=== PATIENT | male | born 1955 | race Caucasian/White ===

== ENCOUNTER 2017-01-06 09:00 | Emergency (ER) | payer OTHER ==
[2017-01-06 09:20] VITALS: BMI 24.8
[2017-01-06 09:24] VITALS: TEMP 98.4
--- NOTE | 2017-01-06 10:13 | ED PDOC ---
Arrival/HPI - General Chief Complaint: Lower Extremity Problem/Injury Time Seen by Provider: 01/06/17 09:28 Historian: Patient - History of Present Illness Narrative History of Present Illness (Text): 01/06/17 10:11 61-year-old male presents today with a two-week history of worsening left sided back pain. Patient states that he's been having on and off back pain which has been minimal for the past 2 months. Patient states about 2 weeks ago he had left something up at work he felt a pop and didn't have any pain at that time but shortly after started to develop worsening pain in the low back on the left side radiating into the left leg. Patient denies numbness weakness or tingling in the extremity. Patient states he's been taking Percocet at home with improvement in his symptoms. Patient states if he does not take the pain medication than he has worsening pain which makes it difficult to ambulate. Patient states the pain is a sharp stabbing pain in the left low back that radiates into the left hip and into the leg. Patient denies abdominal pain. No nausea or vomiting. Denies fevers or chills. No chest pain or shortness of breath. No other complaints Time/Duration: > week (2) Past Medical History - Provider Review Nursing Documentation Reviewed: Yes - Travel History Have you recently traveled outside [place] w/in the past 3 mons?: No - Tetanus Immunization Tetanus Immunization: Unknown - Cardiac Hx Cardiac Disorders: Yes ([facility]I 06-11-14POST CARDIAC CATH ANGIOPLASTY- RIGHT GROIN ) Hx Hypertension: Yes Hx Pacemaker: No - Pulmonary Hx Respiratory Disorders: No - Neurological Hx Neurological Disorder: No - HEENT Hx HEENT Disorder: No - Renal Hx Renal Disorder: No - Endocrine/Metabolic Hx Endocrine Disorders: No - Hematological/Oncological Hx Blood Disorders: No - Integumentary Hx Dermatological Disorder: No - Musculoskeletal/Rheumatological Hx Musculoskeletal Disorders: Yes (RIGHT MENISCUS TEAR,LEFT KNEE ARTHORSCOPY 2- 12) Hx Falls: Yes - Gastrointestinal Hx Gastrointestinal Disorders: No - Genitourinary/Gynecological Hx Genitourinary Disorders: No - Psychiatric Hx Psychophysiologic Disorder: No Hx Substance Use: No - Surgical History Hx Coronary Stent: Yes - Anesthesia Hx Anesthesia: Yes Hx Anesthesia Reactions: No - Suicidal Assessment Feels Threatened In Home Enviroment: No Family/Social History - Physician Review Nursing Documentation Reviewed: Yes Family/Social History: Unknown Family HX Smoking Status: Former Smoker Hx Alcohol Use: No Hx Substance Use: No Hx Substance Use Treatment: No Allergies/Home Meds Allergies/Adverse Reactions: Allergies No Known Allergies Allergy (Verified 06/11/14 12:48) Home Medications: Home Meds Medication Instructions Recorded Confirmed Atorvastatin [Lipitor] 40 mg PO DIN 01/06/17 01/06/17 Carvedilol [Coreg] 6.5 mg PO DAILY 01/06/17 01/06/17 Folic Acid 1 mg PO DAILY 01/06/17 01/06/17 Levothyroxine [Synthroid] 25 mcg PO DAILY 01/06/17 01/06/17 amLODIPine [Norvasc] 5 mg PO DAILY 01/06/17 01/06/17 Review of Systems - Review of Systems Constitutional: absent: Fatigue, Fevers Respiratory: absent: SOB, Cough Cardiovascular: absent: Chest Pain, Palpitations Gastrointestinal: absent: Abdominal Pain, Nausea, Vomiting Genitourinary Male: absent: Dysuria, Frequency, Hematuria Musculoskeletal: Arthralgias (left hip), Back Pain. absent: Neck Pain Skin: absent: Rash, Pruritis Neurological: absent: Headache, Dizziness Psychiatric: absent: Anxiety, Depression Physical Exam Vital Signs Reviewed: Yes Vital Signs Temp Pulse Resp BP Pulse Ox 01/06/17 09:23 98.4 F 67 20 149/82 98 Temperature: Afebrile Blood Pressure: Normal Pulse: Regular Respiratory Rate: Normal Appearance: Positive for: Well-Appearing, Non-Toxic, Comfortable Pain Distress: None Mental Status: Positive for: Alert and Oriented X 3 - Systems Exam Head: Present: Atraumatic Mouth: Present: Moist Mucous Membranes Neck: Present: Normal Range of Motion Respiratory/Chest: Present: Clear to Auscultation, Good Air Exchange. No: Respiratory Distress, Accessory Muscle Use Cardiovascular: Present: Regular Rate and Rhythm, Normal S1, S2. No: Murmurs Abdomen: No: Tenderness, Distention Back: Present: Normal Inspection, Paraspinal Tenderness, Pain with Leg Raise. No: Midline Tenderness Upper Extremity: Present: Normal ROM Lower Extremity: Present: Normal Inspection, Normal ROM, Neurovascularly Intact. No: Tenderness, Swelling Neurological: Present: GCS=15, Speech Normal, Motor Func Grossly Intact, Normal Sensory Function Skin: Present: Warm, Dry, Normal Color. No: Rashes Psychiatric: Present: Alert, Oriented x 3 Medical Decision Making ED Course and Treatment: 01/06/17 10:13 Patient nontoxic well-appearing in no distress with stable vital signs. Toradol, Flexeril Left hip x-ray: No fracture, + arthritis LS-spine x-ray: No fracture, ? arthritis Patient reassessment: Feeling better with medications. Muscle strength 5 out of 5 bilaterally. I advised to followup with the orthopedist and back specialist within the next 2 days. Return if symptoms worsen persist or new symptoms develop Patient verbalizes understanding of discharge instructions and need for immediate followup. all aspects of this case were discussed the attending of record. Impression: Back pain Motrin every 6 hours as needed for pain Flexeril one tablet every 8 hours as needed for muscle spasms: May cause drowsiness Percocet one tablet every 6 hours as needed for moderate to severe pain: May cause drowsiness Followup with the orthopedist/back specialist within the next 2 days Followup with primary care physician within the next 2 days Return if symptoms worsen persist or if new symptoms develop 01/06/17 11:20 - RAD Interpretation Radiology Orders: 01/06/17 09:28 Hip Left [HIP MIN 2V W/ PELVIS LT] [RAD] Stat LS SPINE WITH OBL > 18 YRS OLD [RAD] Stat - Medication Orders Current Medication Orders: Discontinued Medications Cyclobenzaprine HCl (Flexeril) 10 mg PO STAT STA Stop: 01/06/17 09:30 Last Admin: 01/06/17 09:45 Dose: 10 mg Ketorolac Tromethamine (Toradol) 30 mg IM STAT STA Stop: 01/06/17 09:30 Last Admin: 01/06/17 09:45 Dose: 30 mg MAR Pain Assessment Document 01/06/17 09:45 HI (Rec: 01/06/17 09:46 HI [email or web address] Pain Reassessment Is this a pain reassessment? No Sleep Is patient sleeping during reassessment? No Presence of Pain Presence of Pain Yes Pain Scale Used Pain Scale Used Numeric Location Left, Right or Bilateral Left Pain Location Body Site Back Hip IM Administration Charges Document 01/06/17 09:45 HI (Rec: 01/06/17 09:46 HI [email or web address]) Charges for Administration # of IM Administrations 1 Disposition/Present on Arrival - Present on Arrival Any Indicators Present on Arrival: No History of DVT/PE: No History of Uncontrolled Diabetes: No Urinary Catheter: No History of Decub. Ulcer: No History Surgical Site Infection Following: None - Disposition Have Diagnosis and Disposition been Completed?: Yes Diagnosis: Back pain, Hip pain Disposition: HOME/ ROUTINE Disposition Time: 11:23 Patient Plan: Discharge Condition: GOOD Discharge Instructions (ExitCare): Back Pain (ED), Arthralgia (ED), Hip Pain ( ED) Additional Instructions: Motrin every 6 hours as needed for pain Flexeril one tablet every 8 hours as needed for muscle spasms: May cause drowsiness Percocet one tablet every 6 hours as needed for moderate to severe pain: May cause drowsiness Followup with the orthopedist/back specialist within the next 2 days Followup with primary care physician within the next 2 days Return if symptoms worsen persist or if new symptoms develop Prescriptions: Cyclobenzaprine [Cyclobenzaprine HCl] 10 mg PO Q8 #10 tab Ibuprofen [Motrin] 600 mg PO Q6H PRN #20 tab PRN Reason: pain/fever reduction oxyCODONE/Acetaminophen [Percocet 5/325 mg Tab] 1 tab PO Q6H PRN #6 tab PRN Reason: moderate to severe pain Referrals: Konrad Aviles APN [Primary Care Provider] - Follow up with primary Quirino Purvis MD [Staff Provider] - Follow up with primary Hany Desai MD [Staff Provider] - Follow up with primary Forms: [employer] ([place]), WORK NOTE
--- NOTE | 2017-01-06 10:53 | RAD ---
PROCEDURE: Left Hip X-ray Radiographs. HISTORY: hip pain COMPARISON: None. FINDINGS: BONES: The pelvic ring is intact. There is no acute fracture or bone destruction. Bone mineralization is normal. JOINTS: The joint spaces are preserved. The sacroiliac joints are normal. SOFT TISSUES: There is a lobular calcifications superolateral to the left greater trochanter. There is also a smaller calcification superior to the right greater trochanter. OTHER FINDINGS: There are multiple phleboliths in the pelvis. IMPRESSION: 1. Lobular calcifications superior to the left greater trochanter may represent calcific tendinitis in the appropriate clinical setting. 2. Also noted is faint calcification superior to the right greater trochanter, presumable tendon calcification.
--- NOTE | 2017-01-06 10:57 | RAD ---
PROCEDURE: Radiographs of the Lumbar Spine. HISTORY: Back pain COMPARISON: No prior. FINDINGS: BONES: There is mild degenerative retrolisthesis of L5 on S1. Lumbar lordosis is maintained. Vertebral bodies are normal in height. There is no acute fracture, spondylolysis or spondylolisthesis. Bone mineralization is normal. DISC SPACES: There is mild multilevel degenerative disc disease in the lower lumbar spine with anterior osteophytes, reduced disc and multilevel facet arthropathy, worse at L5-S1. OTHER FINDINGS: There are no pathologic soft tissue calcifications. Both sacroiliac joints are normal. There are multiple phleboliths in the pelvis. IMPRESSION: No acute fracture, spondylolysis or spondylolisthesis. Multilevel degenerative disc disease in the lower lumbar spine, worse at L5-S1.
[2017-01-06 11:40] VITALS: BP 178/72; PULSE 62; RESP 16; O2SAT 100
== END 2017-01-06 11:33 | disposition home or self-care (01) ==
LOC: ED 09:00
DX: M25.552 Pain in left hip (principal); M54.5 Low back pain; I10 Essential (primary) hypertension; Z87.891 Personal history of nicotine dependence
CPT/HCPCS: 72110; 73502; 96372; 99284; J1885